=== PATIENT | female | born 1965 | race Caucasian/White ===

== ENCOUNTER 2017-09-07 18:43 | Inpatient (IN) | payer MEDICAID ==
[~2017-09-07] VITALS: Ht 165.1 cm; Wt 63.0 kg
[2017-09-07 18:53] VITALS: Ht 165.1 cm; Wt 63.0 kg
[2017-09-07 22:29] LABS: PLATELET COUNT 201 x10^3mcL (130-400); RED CELL DISTRIBUTION WIDTH 12.4 % (11.5-14.5)
[2017-09-07 22:47] LABS: CALCIUM 8.5 mg/dL (8.5-10.1); CARBON DIOXIDE 24.4 mmol/L (21-32); CHLORIDE SERUM 102 mmol/L (98-107); CREATININE SERUM 0.9 mg/dL (0.6-1.0); GFR1 > 60 mL/min; GLUCOSE SERUM 123 mg/dL (74-106); SODIUM SERUM 139 mmol/L (136-145)
[2017-09-07 22:49] LABS: microscopic required? YES; urine erythrocyte TRACE (NEGATIVE)
[2017-09-07 22:51] LABS: ALBUMIN 4.1 g/dL (3.4-5.0); ALKALINE PHOSPHATASE 34 U/L (46-116); ALT/SGPT 20 U/L (14-59); AST/SGOT 29 U/L (15-37); CHOLESTEROL 166 mg/dL (<200); HDL CHOLESTEROL 58 mg/dL (40-60); TOTAL PROTEIN, SERUM 7.2 g/dL (6.4-8.2)
[2017-09-07 23:22] LABS: BAND NEUTROPHIL 15 % (0-10); SEGMENTED NEUTROPHILS 80 % (37-75); rbc morphology (normal/abnorm) ABNORMAL (NORMAL)
[2017-09-07 23:23] LABS: PLATELET MORPHOLOGY LARGE PLATELET SEEN
[2017-09-08] VITALS (9 sets, daily range): BP systolic 80–109; BP diastolic 41–65
[2017-09-08 04:47] LABS: MAGNESIUM 1.6 mg/dL (1.8-2.4); PHOSPHOROUS 2.9 mg/dL (2.5-4.9)
[2017-09-08 04:51] LABS: T3 TOTAL 1.12 ng/mL
[2017-09-08 04:52] LABS: FREE T4 1.12 ng/dL (0.76-1.46); FREE THYROXINE INDEX 3.1 ug/dL (1.4-4.5); T4(THYROXINE) 8.5 ug/dL (4.7-13.3)
[2017-09-08 07:19] LABS: BASOPHIL % 0 % (0-2); PLATELET COUNT 173 x10^3mcL (130-400); RED CELL DISTRIBUTION WIDTH 12.6 % (11.5-14.5)
[2017-09-08 07:25] LABS: CALCIUM 7.4 mg/dL (8.5-10.1); CARBON DIOXIDE 30.6 mmol/L (21-32); CHLORIDE SERUM 108 mmol/L (98-107); CREATININE SERUM 0.9 mg/dL (0.6-1.0); GFR1 > 60 mL/min; GLUCOSE SERUM 122 mg/dL (74-106); POTASSIUM SERUM 4.5 mmol/L (3.5-5.1); SODIUM SERUM 142 mmol/L (136-145)
[2017-09-09 05:09] VITALS: BP 116/64
[2017-09-09 06:35] LABS: PLATELET COUNT 168 x10^3mcL (130-400); RED CELL DISTRIBUTION WIDTH 13.4 % (11.5-14.5)
[2017-09-09 06:50] LABS: BASOPHIL % 0 % (0-2)
[2017-09-09 07:01] LABS: CALCIUM 7.5 mg/dL (8.5-10.1); CARBON DIOXIDE 27.8 mmol/L (21-32); CHLORIDE SERUM 110 mmol/L (98-107); CREATININE SERUM 0.9 mg/dL (0.6-1.0); GFR1 > 60 mL/min; GLUCOSE SERUM 112 mg/dL (74-106); MAGNESIUM 2.5 mg/dL (1.8-2.4); PHOSPHOROUS 2.2 mg/dL (2.5-4.9); POTASSIUM SERUM 3.8 mmol/L (3.5-5.1); SODIUM SERUM 143 mmol/L (136-145)
[2017-09-09] MEDS ORDERED: ZITHROMAX Z-PA250 MG PO (09:45)
[2017-09-09] MEDS ORDERED: LAC PO (09:45)
[2017-09-09] MEDS ORDERED: KEFLEX500 M1 PO (09:45)
[2017-09-09] MEDS ORDERED: ROBACL PO (09:46)
[2017-09-09 10:26] VITALS: BP 111/64
[2017-09-09 10:40] VITALS: BP 111/64
[2017-09-09] MEDS ORDERED: ROBL PO (11:10)
[2017-09-09 21:14] LABS: AMPHETAMINE QUAL UR NONE DETECTED (NEG <=1000)
== END 2017-09-09 11:38 | disposition home or self-care (01) | DRG 720 ==
LOC: ED 18:43 → DU 09-08 00:07
PROVIDERS: Emergency Medicine; Family Medicine
DX: A41.9 Sepsis, unspecified organism (principal); J18.9 Pneumonia, unspecified organism; E83.39 Other disorders of phosphorus metabolism; E83.51 Hypocalcemia; E83.41 Hypermagnesemia; E87.6 Hypokalemia; R31.29 Other microscopic hematuria; R73.03 Prediabetes; E78.5 Hyperlipidemia, unspecified; F13.129 Sedative, hypnotic or anxiolytic abuse with intoxication, unspecified; Z68.20 Body mass index [BMI] 20.0-20.9, adult; Z87.891 Personal history of nicotine dependence; Z85.41 Personal history of malignant neoplasm of cervix uteri
CPT/HCPCS: 83880; 84439; 87804; 90658; 94150; J0456; J0696; J1885; J2405; J3475; J3480; J7030; J7040; J7620; Q0092